=== PATIENT | male | born 1950 | race Caucasian/White ===

== ENCOUNTER → 2021-08-19 | Outpatient (CLI) | payer OTHER ==
[~2021-08-19] MED LIST: LO-DOSE ASPIRIN81 MG PO; PROTONIX20 MG PO; VITAMIN B12 PO; VITAMIN D21250 MCG PO; ZOCOR10 MG PO
[2021-08-19 11:29] LABS: RED BLOOD COUNT 5.06 M/UL (4.20-5.50)
[2021-08-19 11:52] LABS: BUN/CREATININE RATIO 27 (0-10)
== END ==
LOC: OPSV2 09:46 → EDSTATUS 10:00 → OPSV2 10:00
PROVIDERS: Anesthesiology
DX: Z01.812 Encounter for preprocedural laboratory examination (principal)
CPT/HCPCS: 36415; 80048; 85025

== ENCOUNTER → 2021-09-01 | Outpatient (CLI) | payer OTHER ==
[2021-09-01 14:00] LABS: BUN/CREATININE RATIO 24 (0-10)
== END ==
LOC: LAB 12:19
PROVIDERS: Orthopaedic Surgery
DX: Z01.818 Encounter for other preprocedural examination (principal)
CPT/HCPCS: 36415; 80048; 86850; 86900; 86901

== ENCOUNTER → 2021-09-02 | Day surgery (SDC) | payer OTHER ==
[~2021-09-02] VITALS: Ht 180.3 cm; Wt 89.4 kg
== END | disposition home or self-care (01) ==
LOC: OR 07:10 → EDSTATUS 13:45 → OR 13:45
DX: M75.102 Unspecified rotator cuff tear or rupture of left shoulder, not specified as traumatic (principal); M12.812 Other specific arthropathies, not elsewhere classified, left shoulder; G89.18 Other acute postprocedural pain; W19.XXXA Unspecified fall, initial encounter; E78.5 Hyperlipidemia, unspecified; K21.9 Gastro-esophageal reflux disease without esophagitis; Z88.1 Allergy status to other antibiotic agents; Z79.82 Long term (current) use of aspirin; Z79.899 Other long term (current) drug therapy
CPT/HCPCS: 73020; C1713; C1776; J0171; J0690; J1100; J2704; J2710; J2795; J3010; J7120